=== PATIENT | female | born 1950 | race African-American/Black ===

== ENCOUNTER 2017-01-13 06:48 | Emergency (ER) | payer OTHER ==
[2017-01-13 07:07] VITALS: BP 101/79; PULSE 88; TEMP 98.4; BMI 32.2
[2017-01-13] MEDS ORDERED: ACETAMINOPHEN 500 MG TABLET (FP) PO ONE (07:30)
--- NOTE | 2017-01-13 07:52 | PDOC ---
History of Present Illness - General Chief Complaint: Pain, Acute Stated Complaint: PAIN Time Seen by Provider: 01/13/17 07:11 - History of Present Illness Initial Comments: 01/13/17 07:43 "66 year old female, with significant past medical history of breast cancer ( currently not on any treatment), HTN, asthma, and neurogenic bladder s/p suprapubic cath, who presents to the emergency room complaining of 2 weeks of swelling of the lower extremities bilaterally. She states that her legs are both equally swollen and painful. Denies CP/SOB. Denies F/C. Denies h/o heart failure. Denies estrogen use, denies recent travel/immobilization. Pt denies any acute complaints but states that she was sent into the emergency room from [facility] for a doppler of her lower extremities. Denies chest pain, cough. Denies recent travel. Denies abdominal pain. Denies fever, chills, nausea, vomiting. Allergies: NKDA PMD: none " Past History - Past Medical History Allergies/Adverse Reactions: Allergies Allergy/AdvReac Type Severity Reaction Status Date / Time No Known Allergies Allergy Verified 01/13/17 07:04 Home Medications: Ambulatory Orders Unobtainable [Unobtainable] 01/13/17 - Suicide/Smoking/Psychosocial Hx Smoking History: Never smoked Have you smoked in the past 12 months: No Information on smoking cessation initiated: No Hx Alcohol Use: No Drug/Substance Use Hx: No Review of Systems - Review of Systems Comments:: 01/13/17 07:52 "GENERAL/CONSTITUTIONAL: No fever or chills. No weakness. HEAD, EYES, EARS, NOSE AND THROAT: No change in vision. No ear pain or discharge. No sore throat. CARDIOVASCULAR: No chest pain or shortness of breath. RESPIRATORY: No cough, wheezing, or hemoptysis. GASTROINTESTINAL: No nausea, vomiting, diarrhea or constipation. GENITOURINARY: No dysuria, frequency, or change in urination. MUSCULOSKELETAL: +bilateral LE swelling and pain. No neck or back pain. SKIN: No rash NEUROLOGIC: No headache, vertigo, loss of consciousness, or change in strength/ sensation. ENDOCRINE: No increased thirst. No abnormal weight change. HEMATOLOGIC/LYMPHATIC: No anemia, easy bleeding, or history of blood clots. ALLERGIC/IMMUNOLOGIC: No hives or skin allergy. " *Physical Exam - Vital Signs Last Vital Signs Temp Pulse Resp BP Pulse Ox 98.4 F 88 18 101/79 98 01/13/17 07:01 01/13/17 07:01 01/13/17 07:01 01/13/17 07:01 01/13/17 07:01 - Physical Exam Comments: 01/13/17 07:52 "GENERAL: Awake, alert, and fully oriented, in no acute distress HEAD: No signs of trauma EYES: PERRLA, EOMI, sclera anicteric, conjunctiva clear ENT: Auricles normal inspection, hearing grossly normal, nares patent, oropharynx clear without exudates. Moist mucosa NECK: Nontender, no stepoffs, Normal ROM, supple, no lymphadenopathy, JVD, or masses LUNGS: Breath sounds equal, clear to auscultation bilaterally. No wheezes, and no crackles HEART: Regular rate and rhythm, normal S1 and S2, no murmurs, rubs or gallops ABDOMEN: Soft, nontender, normoactive bowel sounds. No guarding, no rebound. No masses EXTREMITIES: +1 pitting edema bilateral lower extremities, no erythema, no fluctuance, mild diffuse tenderness with no crepitus. Normal range of motion. No clubbing or cyanosis. No cords, erythema, or tenderness NEUROLOGICAL: Cranial nerves II through XII intact. 5/5 strength and sensation in all extremities, Normal speech, normal gait SKIN: Warm, Dry, normal turgor, no rashes or lesions noted. Heart Score/ECG Review - ECG Impressions Comment:: 01/13/17 07:57 NSR, no MARTHA/STDs, no TWIs, intervals wnl, axis wnl ED Treatment Course - LABORATORY CBC & Chemistry Diagram: 01/13/17 07:43 01/13/17 07:43 - RADIOLOGY Radiology Studies Ordered: Category Date Time Status CHEST PA & LAT [RAD] Stat Radiology 01/13/17 07:29 Ordered DUPLEX VASCUL US-2LEGS [US] Stat Ultrasound 01/13/17 07:29 Ordered Medical Decision Making - Medical Decision Making 01/13/17 07:57 66 F with BLE swelling x 2 weeks. DVT unlikely, as pt with symmetric BLE edema. However, given h/o breast CA, will obtain US and d dimer to r/o DVT. Pt with no rales on exam and no complaints of CP/SOB, making CHF less likely. Will also check liver and kidney function. - Labs, ddimer, BNP - US BLE - CXR 01/13/17 11:14 CXR clear Dopplers negative for DVT. Ddimer negative. No need for repeat imaging. Labs normal. Given significant pain to lower extremities with some mild erythematous skin changes, pt may have early cellulitis. Will begin empiric tx with bactrim (will cover MRSA since pt is living in [facility]) Pt well appearing with normal vitals. Clinically stable for DC. I discussed the physical exam findings, ancillary test results and final diagnoses with the patient. I answered all of the patient's questions. The patient was satisfied with the care received and felt comfortable with the discharge plan and treatment plan. The patient agrees to follow up with the primary care physician within 24-72 hours. *DC/Admit/Observation/Transfer Diagnosis at time of Disposition: Leg swelling - Discharge Dispostion Disposition: HOME Condition at time of disposition: Fair - Referrals Referrals: STAFF,NOT ON [Primary Care Provider] - - Patient Instructions Printed Discharge Instructions: DI for Dependent Edema, DI for Peripheral Edema -- Bilateral Additional Instructions: Your ultrasound showed no evidence of blood clots in your legs. Take the antibiotics as prescribed. Keep your legs elevated when possible to reduce swelling. Follow up with your primary doctor within 1 week for a re-evaluation. If you experience worsening pain, swelling, redness, fevers, or any other concerning symptoms, return to the ER immediately. - Attestations Physician Attestion: 01/13/17 11:16 I, Dr. Onur Watson MD, attest that this document has been prepared under my direction and personally reviewed by me in its entirety. I further attest, that it accurately reflects all work, treatment, procedures and medical decision -making performed by me.
[2017-01-13 08:03] LABS: BASOPHIL 0.6 % (0-2.0); EOSINOPHIL 4.4 % (0-4.5); MCH 32.3 pg (25.7-33.7); MCHC 33.5 g/dl (32.0-36.0); MEAN CELL VOLUME 96.4 fl (80-96); MEAN PLT VOLUME 7.5 fl (7.5-11.1); NEUTROPHILS 56.2 % (42.8-82.8); PLATELET COUNT 241 K/MM3 (134-434); RDW 12.6 % (11.6-15.6)
[2017-01-13] MEDS ORDERED: ACETAMINOPHEN 325 MG TABLET (FP) ONE (08:03)
[2017-01-13 08:25] LABS: CPK 138 IU/L (26-192); TROPONIN I < 0.02 ng/ml (0.00-0.05)
[2017-01-13 08:31] LABS: ALBUMIN 3.6 g/dl (3.4-5.0); ALK PHOS 86 U/L (45-117); ANION GAP 6 (8-16); BILIRUBIN,TOTAL 0.3 mg/dL (0.2-1.0); CALCIUM 8.7 mg/dL (8.5-10.1); CO2 27 mmol/L (21-32); CREATININE 0.9 mg/dL (0.55-1.02); GLUCOSE,RANDOM 90 mg/dL (74-106); SGOT/AST 10 U/L (15-37); SGPT/ALT 15 U/L (12-78); TOT PROT 6.8 g/dl (6.4-8.2)
[2017-01-13 08:36] LABS: PROTHROMBIN TIME (PATIENT) 11.3 SEC (9.98-11.88)
[2017-01-13] MEDS ORDERED: oxyCODONE HCL 5 MG TABLET PO ONE (11:20)
[2017-01-13] MEDS ORDERED: SULFAMETHOXAZOLE/TRIMETHOPRIM 800MG/160MG D.S. TABLET PO ONE (11:20)
[2017-01-13] MEDS ORDERED: oxyCODONE HCL 5 MG TABLET ONE (11:26)
[2017-01-13] MEDS ORDERED: SULFAMETHOXAZOLE/TRIMETHOPRIM 800MG/160MG D.S. TABLET ONE (11:27)
--- NOTE | 2017-01-13 12:37 | EKG ---
Test Reason : Blood Pressure : / mmHG Vent. Rate : 083 BPM Atrial Rate : 083 BPM P-R Int : 156 ms QRS Dur : 072 ms QT Int : 354 ms P-R-T Axes : 054 -09 050 degrees QTc Int : 415 ms NORMAL SINUS RHYTHM LOW VOLTAGE QRS BORDERLINE ECG NO PREVIOUS ECGS AVAILABLE Confirmed by MAKI CUELLAR MD ([id number]) on 01/13/2017 12:36:53 PM Referred By: Confirmed By:MAKI CUELLAR MD
== END 2017-01-13 11:39 | disposition home or self-care (01) ==
LOC: JER 06:48
DX: R60.0 Localized edema (principal); Z85.3 Personal history of malignant neoplasm of breast; I10 Essential (primary) hypertension; J45.909 Unspecified asthma, uncomplicated
CPT/HCPCS: 36415; 71020-TC; 80053; 82550; 83880; 84484; 85025; 85379; 85610; 85730; 93005; 93010; 93970-TC; 99281-25